=== PATIENT | male | born 1995 | race Caucasian/White ===

== ENCOUNTER → 2018-05-20 12:47 | Outpatient (CLI) | payer BC, SELFPAY ==
[2018-05-20 13:06] LABS: Add Manual Diff / Slide Review NO; Basophils Percent Auto 0.9 % (0-2); Eosinophils Percent Auto 1.7 % (2-4); Lymphocytes Percent Auto 14.4 % (25-40); Mean Corpuscular HGB Conc 35.1 % (30-36); Mean Corpuscular Hemoglobin 30.7 PG (26-34); Mean Corpuscular Volume 87.6 fL (80-100); Monocytes Percent Auto 15.6 % (3-14); Neutrophils Absolute Auto 5400 /uL (3000-5900); Neutrophils Percent Auto 67.4 % (50-75); Platelet Count 312 X10^3/uL (150-400); Red Blood Cell Count 4.56 X10^6/uL (4.5-5.9); Red Cell Distribution Width 11.4 % (11.6-14.8)
[2018-05-20 14:46] LABS: Alanine Aminotransferase 41 IU/L (21-72); Albumin Globulin Ratio 1.4 (1.0-2.8); Alkaline Phosphatase 89 U/L (38-126); Aspartate Aminotransferase 27 IU/L (17-59); BUN Creatinine Ratio 12.5 (6-22); Bilirubin Total 0.6 mg/dL (0.2-1.3); Blood Urea Nitrogen 10 mg/dL (9-20); Calcium 9.3 mg/dL (8.4-10.2); Carbon Dioxide 30 mmol/L (22-32); Chloride 99 mmol/L (98-107); Estimated Glomerular Filt Rate > 60.0 mL/min (>60); Globulin 2.8 g/dL (1.7-4.1); Glucose 268 mg/dL (70-100); HEMOLYSIS < 15 (0-50); Potassium 4.7 mmol/L (3.4-5.1); Sodium 140 mmol/L (137-145); Total Protein 6.8 g/dL (6.3-8.2)
== END ==
PROVIDERS: PCP Internal Medicine; Visit Provider Physician Assistant
DX: R19.7 Diarrhea, unspecified (principal)
CPT/HCPCS: 36415; 80053; 85025; 87015; 87045; 87147; 87427; 87899

== ENCOUNTER → 2019-04-24 18:22 | Outpatient (ROUT) | payer BC, SELFPAY ==
[2019-04-24 19:55] LABS: Urine N gonorrhoeae NOT DETECTED
[2019-04-27 09:02] LABS: Urine Chlamydia DETECTED
== END ==
PROVIDERS: PCP Internal Medicine; Visit Provider Physician Assistant
DX: R30.0 Dysuria (principal)
CPT/HCPCS: 87491; 87591

== ENCOUNTER 2020-03-30 19:24 | Emergency (ER) | payer BC, SELFPAY ==
[2020-03-30 19:29] VITALS: BP 125/58; PULSE 62; RESP 15; TEMP 36.9; O2SAT 99; BMI 26.4
--- NOTE | 2020-03-30 19:35 | DI.RAD.S_ITS ---
PROCEDURE: XR FINGER RT MIN 2V INDICATIONS: shot hand just below base of thumb with nail gun TECHNIQUE: AP hand, 2 views of the right 1st finger(s) acquired. COMPARISON: None. FINDINGS: Bones: No fractures or dislocations. No suspicious bony lesions. Soft tissues: No suspicious soft tissue calcifications. No unexpected radiopaque foreign bodies. IMPRESSION: No unexpected radiopaque foreign bodies after 1st digit impaled by a nail. Dictated by: Yeimy Peña M.D. on 03/30/2020 at 19:57 Approved by: Yeimy Peña M.D. on 03/30/2020 at 19:57
[2020-03-30] MEDS: TET,DIPH,PERTUSS(ACELL),VAC/PF 0.5 ML SYRINGE IM (19:39)
--- NOTE | 2020-03-30 20:39 | ED_ITS ---
HPI - Extremity Injury (Upper) <NIKIA Coleman - Last Filed: 03/30/20 22:20> General Chief Complaint: Extremity Injury, Upper Stated Complaint: shot right hand with nail gun Time Seen by Provider: 03/30/20 20:30 Source: patient Mode of arrival: Ambulatory Limitations: no limitations History of Present Illness HPI narrative: This is a 24-year-old male, occasional vaper, who has history of type 1 diabetes with insulin use presents to ED with, dominant hand, right radial aspect of puncture wound on the base of thumb by a nail gun at work. The nail gun went through the board and hit a knot and accidentally hit affected site. His in a acquired sure but does not think it went deep in his hand. Patient reports intact sensation, slightly decreased of range of motion due to pain. He is not sure last tetanus immunization. Patient denies previous injury to the same hand. Related Data Home Medications Medication Instructions Recorded Confirmed insulin aspart U-100 unit SUBCUT 03/30/20 insulin glargine [Lantus Solostar unit SUBCUT 03/30/20 U-100 Insulin] Previous Rx's Medication Instructions Recorded cephalexin [Keflex] 500 mg PO Q6H 7 Days #28 cap 03/30/20 Allergies Allergy/AdvReac Type Severity Reaction Status Date / Time No Known Drug Allergies Allergy Verified 03/30/20 19:29 Review of Systems <NIKIA Coleman - Last Filed: 03/30/20 22:20> Review of Systems Narrative: Respiratory: Denies dyspnea, cough, wheezing, hemoptysis, sputum. Cardiovascular: Denies chest pain, palpitations, orthopnea, edema. Gastrointestinal: Denies nausea, vomiting, abdominal pain, diarrhea, constipation, melena. : Denies dysuria, frequency, incontinence, hematuria, urinary retention. Musculoskeletal: See HPI Skin: See HPI Patient History <NIKIA Coleman - Last Filed: 03/30/20 22:20> Social History Smoking Status: Current some day smoker Smoking Status: Current some day smoker tobacco type: vaping alcohol intake frequency: a few times a week Substance Use Type: does not use Exam <NIKIA Coleman - Last Filed: 03/30/20 22:20> Narrative Exam Narrative: General appearance: well developed, well nourished, in no acute distress. Head: normocephalic, atraumatic, no scalp lesions, non-tender. ENT: Hearing grossly intact. Airway patent. Neck/Thyroid: neck supple, full range of motion, no visible masses or meningeal signs. No JVD, non-tender without lymphadenopathy. Skin: A puncture wound in radial aspect of right base of thumb. Warm and dry and appropriate color for ethnicity. Heart: no clubbing, no cyanosis, no edema. Lungs: Breathing even and unlabored. No stridor. No accessory muscles used. Able to speak in full sentences. Chest: normal shape and expansion. Abdomen: non-obese, non-distended. Neurologic: alert and oriented. Cognitive exam, [employer] and PNS grossly intact on informal exam. Psych: good eye contact, normal affect. Initial Vital Signs Initial Vital Signs: Vital Signs Temperature 98.4 F 03/30/20 19:29 Pulse Rate 62 03/30/20 19:29 Respiratory Rate 15 03/30/20 19:29 Blood Pressure 125/58 L 03/30/20 19:29 Pulse Oximetry 99 03/30/20 19:29 Extrem Right upper extremity: hand Details: neuromotor exam normal, neurosensory exam normal, tendon exam normal, vascular exam Details: radial pulse present and normal capillary refill, abnormal ROM of finger Details: pain with active ROM (Able to flex and extend), no swelling and puncture wound (radial aspect of base of the thumb); no unusual warmth, no ecchymosis, no crepitus and no foreign bodies <Anuj Sotomayor DO - Last Filed: 03/31/20 04:17> Initial Vital Signs Initial Vital Signs: Vital Signs Temperature 98.4 F 03/30/20 19:29 Pulse Rate 62 03/30/20 19:29 Respiratory Rate 15 03/30/20 19:29 Blood Pressure 125/58 L 03/30/20 19:29 Pulse Oximetry 99 03/30/20 19:29 Scores <Chito NIKIA Jefferson - Last Filed: 03/30/20 22:20> GCS Bird In Hand coma scale eye opening: Spontaneous Jazz coma scale verbal response: Orientated Jazz coma scale motor response: Obey commands Bird In Hand coma scale total score: 15 Course <[facility] Marshall[facility] - Last Filed: 03/30/20 22:20> Orders Ordered: ED Orders 03/30/20 19:35 XR finger RT min 2V Stat Discontinued Medications Bacitracin (Bacitracin) 1 applic TOP NOW ONE Stop: 03/30/20 20:36 Last Admin: 03/30/20 20:55 Dose: 1 applic Documented by: NADIA Cephalexin HCl (Keflex) 500 mg PO NOW ONE Stop: 03/30/20 20:36 Last Admin: 03/30/20 20:55 Dose: 500 mg Documented by: NADIA Diphtheria/Tetanus/Acell Pertussis (Adacel) 0.5 ml IM .ONCE ONE Stop: 03/30/20 19:37 Last Admin: 03/30/20 19:39 Dose: 0.5 ml Documented by: NADIA Vital Signs Vital signs: Vital Signs - 8 hr 03/30/20 21:20 Pulse Rate 69 Respiratory Rate 15 Blood Pressure 131/75 Pulse Oximetry 100 <Anuj Sotomayor DO - Last Filed: 03/31/20 04:17> Orders Ordered: ED Orders 03/30/20 19:35 XR finger RT min 2V Stat Discontinued Medications Bacitracin (Bacitracin) 1 applic TOP NOW ONE Stop: 03/30/20 20:36 Last Admin: 03/30/20 20:55 Dose: 1 applic Documented by: NADIA Cephalexin HCl (Keflex) 500 mg PO NOW ONE Stop: 03/30/20 20:36 Last Admin: 03/30/20 20:55 Dose: 500 mg Documented by: NADIA Diphtheria/Tetanus/Acell Pertussis (Adacel) 0.5 ml IM .ONCE ONE Stop: 03/30/20 19:37 Last Admin: 03/30/20 19:39 Dose: 0.5 ml Documented by: NADIA Vital Signs Vital signs: Vital Signs - 8 hr 03/30/20 21:20 Pulse Rate 69 Respiratory Rate 15 Blood Pressure 131/75 Pulse Oximetry 100 MDM - Extremity Injury (Upper) <Chito NIKIA Jefferson - Last Filed: 03/30/20 22:20> Differential Diagnosis Differential diagnosis: Likely other (Puncture wound, fracture, foreign body) Medical Records Attestation: I reviewed the patient's medical records. Imaging Data XR-Finger RT: Radiologist's Impression: [address] [address] XRay Report Signed Patient: Mukesh Benjamin [facility]#: [id number] : 1995Acct:[id number] Age/Sex: 24 / MDate of Service: 03/30/20 Loc: ED Accession Number: [id number] Procedure: XR finger RT min 2V Ordering Provider: Anuj Sotomayor D.O. PROCEDURE: XR FINGER RT MIN 2V INDICATIONS: shot hand just below base of thumb with nail gun TECHNIQUE: AP hand, 2 views of the right 1st finger(s) acquired. COMPARISON: None. FINDINGS: Bones: No fractures or dislocations. No suspicious bony lesions. Soft tissues: No suspicious soft tissue calcifications. No unexpected radiopaque foreign bodies. IMPRESSION: No unexpected radiopaque foreign bodies after 1st digit impaled by a nail. Dictated by: Yeimy Peña M.D. on 03/30/2020 at 19:57 Approved by: Yeimy Peña M.D. on 03/30/2020 at 19:57 [facility] Narrative Medical decision making narrative: X-ray findings no fractures or dislocation. No radial plaque foreign bodies appreciated. Patient has intact sensation and mobility but slightly decreased in range of motion due to pain and intake circulation distally. Both and cleaned well with Hibiclens and applied bacitracin and a Band-Aid. Given patient has history of diabetes type 1 and mechanism injury as puncture wound, patient was treated with Keflex prophylactically for an infection. Patient discharged to home with 7 day course of Keflex q.i.d. dose. Advised to follow up with primary care physician for wound recheck and return precautions including wound care and patient verbalized understanding in agreement with treatment plan. Discharge Plan Departure Patient Disposition: Home Clinical Impression: Puncture wound of right upper extremity Discharge Date/Time: 03/30/20 21:22 Instructions: DI for Puncture Wound Activity Restrictions/Additional Instructions: You have been diagnosed with [puncture wound to right radial aspect of base of thumb from a nail gun. No acute findings per x-ray test such as fracture, foreign body, dislocation. Tdap has been updated today. Your medicated with 1st dose of Keflex in ED. keep the wound clean and dry after applying antibiotic ointment topically. What to do: *Take your medications as directed. Please continue to take Keflex which is antibiotic medication from tomorrow 4 times a day for next 7 days to prevent infection. The medication has been transmitted to [facility] *Follow up with your primary care provider in 2-3 days, call for an appointment. Let them know you were seen in the ED and that we asked you to be seen in follow up. *Return to ED if you have any new, worsening, or concerning symptoms, such as [increasing redness, warmth, pain, swelling, fever, for purulent discharge, chest pain, breathing difficulty, unable to tolerate fluids or any acute concerns]. Prescriptions: New cephalexin [Keflex] 500 mg capsule 500 mg PO Q6H 7 Days Qty: 28 RF: 0 No Action insulin aspart U-100 100 unit/mL (3 mL) insulin pen SUBCUT RF: 0 Lantus Solostar U-100 Insulin 100 unit/mL (3 mL) insulin pen SUBCUT RF: 0 Referrals: Ayo Montejo MD [Primary Care Provider] - Dori Canales MD [Physician] - <Anuj Sotomayor DO - Last Filed: 03/31/20 04:17> Cosign ED Attending Cosjajaature Attestation: I was immediately available in the department for consultation. This documentation has been reviewed and I agree with assessment and plan. Supervised by Anuj Sotomayor DO
[2020-03-30] MEDS: cephALEXin 250 MG CAPSULE 500 MG PO (20:55)
[2020-03-30] MEDS: BACITRACIN OINT 0.9 GM PCKT 1 APPLIC TOP (20:55)
[2020-03-30 21:20] VITALS: BP 131/75; PULSE 69; RESP 15; O2SAT 100
== END 2020-03-30 21:22 | disposition home or self-care (01) ==
PROVIDERS: Emergency Provider Nurse Practitioner Family; PCP Internal Medicine
DX: S61.031A Puncture wound without foreign body of right thumb without damage to nail, initial encounter (principal); W29.4XXA Contact with nail gun, initial encounter; Z23 Encounter for immunization
CPT/HCPCS: 73140; 90471; 99283; 99284; 90715

== ENCOUNTER → 2022-10-02 12:00 | Outpatient (CLI) | payer BC, SELFPAY | PROVIDERS: PCP Internal Medicine; Visit Provider Physician Assistant | DX: L03.019 Cellulitis of unspecified finger (principal) | CPT/HCPCS: 87070; 87075; 87077; 87147; 87205 ==

== ENCOUNTER → 2025-05-08 08:36 | Outpatient (CLI) | payer OTHER, SELFPAY ==
[2025-05-08 11:20] LABS: Urine N gonorrhoeae NOT DETECTED
[2025-05-08 12:08] LABS: Urine Chlamydia NOT DETECTED
[2025-05-08 16:31] LABS: HIV 1 & 2 Ab/Ag 4th Gen Combo NEGATIVE (NEGATIVE)
== END ==
PROVIDERS: PCP Internal Medicine; Referring Provider Physician Assistant Medical; Visit Provider Physician Assistant Medical
DX: Z72.51 High risk heterosexual behavior (principal); Z20.2 Contact with and (suspected) exposure to infections with a predominantly sexual mode of transmission
CPT/HCPCS: 36415; 86592; 87389; 87491; 87591